=== PATIENT | female | born 1950 | race Caucasian/White ===

== ENCOUNTER → 2018-06-08 18:00 | Outpatient (CLI) | payer SELFPAY ==
[2018-06-10 09:21] LABS: IMMUNOGLOBULIN A 194 mg/dL (87-352)
== END | disposition home or self-care (01) ==
LOC: D.LABREF 18:00
PROVIDERS: Internal Medicine Pulmonary Disease
DX: J44.9 Chronic obstructive pulmonary disease, unspecified (principal); J30.9 Allergic rhinitis, unspecified

== ENCOUNTER → 2020-09-24 13:54 | Outpatient (CLI) | payer MEDICARE, BC | END | disposition home or self-care (01) | LOC: D.RT 13:54 | PROVIDERS: ATTEND Internal Medicine Pulmonary Disease | DX: J44.9 Chronic obstructive pulmonary disease, unspecified (principal); Z11.52 Encounter for screening for COVID-19 ==